=== PATIENT | male | born 1975 | race Caucasian/White ===

== ENCOUNTER 2018-01-23 22:50 | Emergency (ER) | payer OTHER ==
[~2018-01-23] VITALS: Ht 172.7 cm; Wt 108.9 kg
[2018-01-23] MEDS ORDERED: GEMFIBROZIL (23:06)
[2018-01-23] MEDS ORDERED: AMLODIPINE (23:06)
[2018-01-23] MEDS ORDERED: LOSARTAN-HCTZ1 EAC1 (23:07)
[2018-01-24] MEDS ORDERED: ULTRAM 50MG TAB50 MG PO (00:21)
[2018-01-24 00:56] VITALS: BP 145/88
== END 2018-01-24 00:59 | disposition home or self-care (01) ==
LOC: M.ERS 22:50
DX: S62.607A Fracture of unspecified phalanx of left little finger, initial encounter for closed fracture (principal); I10 Essential (primary) hypertension; W22.8XXA Striking against or struck by other objects, initial encounter; Y93.89 Activity, other specified; Y92.89 Other specified places as the place of occurrence of the external cause; Y99.8 Other external cause status